=== PATIENT | female | born 1930 | race African-American/Black ===

== ENCOUNTER 2017-02-08 06:55 | Inpatient (IN) | payer MEDICARE, OTHER ==
[2017-01-26 10:14] LABS: BASOPHILS 0.2 %; BASOPHILS ABSOLUTE 0.01 10/3/uL (0.0-0.16); EOSINOPHILS 2.2 %; EOSINOPHILS ABSOLUTE 0.13 10/3/uL (0.0-0.53); HEMATOCRIT 41.6 % (36.0-48.0); HEMOGLOBIN 13.2 g/dL (12.0-16.0); IMMATURE GRANULOCYTES 0.2 %; IMMATURE GRANULOCYTES ABSOLUTE 0.01 10/3/uL (0.0-0.11); LYMPHOCYTES ABSOLUTE 1.42 10/3/uL (0.67-4.30); MEAN CORPUS HGB CONC 31.7 g/dL (32.0-36.0); MEAN CORPUSCULAR HEMOGLOB 28.7 pg (26.0-34.0); MEAN CORPUSCULAR VOLUME 90.4 fL (80-100); MEAN PLATELET VOLUME 10.3 fL (9.2-13.0); MONOCYTES 5.2 %; MONOCYTES ABSOLUTE 0.31 10/3/uL (0.21-1.20); NEUTROPHILS 68.2 %; NEUTROPHILS ABSOLUTE 4.04 10/3/uL (2.02-8.40); PLATELET COUNT 199 10/3/uL (150-400); RBC DISTRIBUTION WIDTH 14.3 % (12.0-16.0); WHITE BLOOD CELLS 5.9 10/3/uL (4.5-10.5)
[2017-01-26 10:19] LABS: MANUAL DIFF NO %
[2017-01-26 10:22] LABS: INTERNATIONAL NORMAL RATI 1.1 UNITS (-); PROTIME (NOT ORD) 14.1 SEC (12.0-14.5)
[2017-01-26 10:23] LABS: PARTIAL THROMBO TIME 32.3 SEC (22.5-37.2)
[2017-01-26 10:32] LABS: ASCORBIC ACID (UR NOT ORDER) 40 (NEG); BILIRUBIN, URINE NEGATIVE (NEG); KETONE, URINE NEGATIVE (NEG); LEUKOCYTE ESTERASE(NOT OR NEG (NEG); WBC (NOT ORDERED) (RFLEX) 2 (0-5)
[2017-01-26 10:36] LABS: ALBUMIN 3.6 G/DL (3.5-5.0); ALKALINE PHOSPHATASE 69 U/L (45-117); CALCIUM, SERUM 9.1 MG/DL (8.5-10.4); CHLORIDE, SERUM 107 MMOL/L (96-112); CO2 (CARBON DIOXIDE) 30 MMOL/L (24-34); CREATININE 0.89 MG/DL (0.55-1.02); GFR AFRICAN AMERICAN 68 ML/MIN (>=60); GFR NON AFRICAN AMERICAN 58 ML/MIN (>=60); GLOBULIN 3.7 G/DL (2.5-4.1); POTASSIUM, SERUM 3.8 MMOL/L (3.5-5.3); SGOT(AST) 17 U/L (5-40); SGPT(ALT) 16 U/L (5-65); SODIUM, SERUM 144 MMOL/L (135-148); TOTAL BILIRUBIN 0.5 MG/DL (0-1.2); TOTAL PROTEIN 7.3 G/DL (6.0-8.5)
[2017-01-26 10:37] LABS: BUN (BLOOD UREA NITROGEN) 15 MG/DL (6-23); GLUCOSE, SERUM 128 MG/DL (60-99)
--- NOTE | ~2017-02-08 | OP ---
Record Of Operation [facility] [address] [place]. [address] NAME: INES SPANN : [birth year] STATUS : ADM IN PAT#: [id number] AGE: 86 ADM/REG DATE : 02/08/17 MR#: [id number] REPORT SERV DATE: 02/08/17 DICTATED BY: AGUS GARCIA DATE: 02/08/17 REPORT STATUS : Draft TRANSCRIBED BY: MODL DATE: 02/08/17 DATE OF PROCEDURE: 02/08/2017 PREOPERATIVE DIAGNOSIS: Left hip arthritis. POSTOPERATIVE DIAGNOSIS: Left hip arthritis. PROCEDURE PERFORMED: Left total hip arthroplasty. SURGEON: Agus Garcia M.D. SWATCH CUTTER: Regis Montes. ANESTHESIA: General with local infusion. PROCEDURE IN DETAIL: The patient is clearly identified and after obtaining informed consent is brought to the operating room at [facility] where here the patient is induced under general anesthesia and subsequently placed in the left lateral decubitus position. This concluded, the thigh and flank are prepped and draped in the usual manner. A time-out procedure successfully performed and after registering the knee and marking the anatomy through an approximately 4.5 incision, the skin is divided. The fascial planes are divided. The lateral fascia then is divided. Hemostasis is obtained with electrocautery and a Charnley retractor is applied. The piriformis is identified, tagged, divided, and retracted over the sciatic nerve felt deep in the wound. At which point, the mini approach to the hip is formed with dividing the capsule in a mini approach with a cuff of tissues remaining at the femoral side to accomplish repair at the conclusion of the case. Dislocating the hip, end-stage arthritic changes are noted. The tissue surrounding the femoral neck are protected with the Hohmann retractor and the femoral neck cut is made according to preoperative templating. This concluded, the femoral head is removed. The acetabulum is exposed. The labral and fluvial tissues are removed and reaming is performed. Subsequently trialing with the appropriate trial, the permanent acetabular components placed with the Volcano Sector. At which point, the acetabular trial component is then placed. The proximal femur is then addressed. The structures posteromedial to the greater trochanter are removed and this concluded the cookie-cutter canal finder lateralizer and reaming is performed. This concluded, broaching is performed and with excellent fit-fill and stability for the implant trialing is performed finding excellent leg length, stability, no impingement, good kickback, no push-pull, and the lesser trochanter palpably at the appropriate distance from the ischium when compared to preoperative templating. The trials were felt to be appropriate. These are all then removed and the permanent implants are then carefully applied uneventfully. Copious irrigation is then performed with same stability and findings noted after insertion. At which point, the joint then is carefully closed in layers including capsule, piriformis, lateral fascia, deep tissues, and skin. Aquacel dressing is applied and the patient is then allowed to awaken, is placed supine and is returned to the recovery room in stable condition having tolerated the procedure well. ESTIMATED BLOOD LOSS: 200 mL. Record Of Operation [facility] [id number] [facility] [place]. [address] NAME: INES SPANN : [birth year] STATUS : ADM IN [facility]#: [id number] AGE: 86 ADM/REG DATE : 02/08/17 MR#: [id number] REPORT SERV DATE: 02/08/17 DICTATED BY: AGUS GARCIA DATE: 02/08/17 REPORT STATUS : Draft TRANSCRIBED BY: JOSE EDUARDO DATE: 02/08/17 FLUIDS: 800 mL. TOURNIQUET TIME: None. PATHOLOGY: Sent specimens. MICROBIOLOGY: None. COMPLICATIONS: None. SPONGE AND NEEDLE COUNTS: Reportedly correct. ANTIBIOTICS: Administered appropriately preoperatively and ordered to be discontinued within 23 hours. IMPLANTS: DePuy hip system, femur Mckean size 6, high offset, +1.5/36 metal head. Acetabulum, Volcano sector size 52 with a +4 neutral liner, and no screws. MARYBETH/JOSE EDUARDO Agus Garcia M.D. / [id number] CC: Agus Garcia M.D.
--- NOTE | ~2017-02-08 | DS ---
Discharge Summary [facility] [address] [place]. [address] NAME: INES SPANN : [birth year] STATUS : DIS IN PAT#: [id number] AGE: 86 ADM/REG DATE : 02/08/17 MR#: [id number] REPORT SERV DATE: 02/16/17 DICTATED BY: AGUS GARCIA DATE: 02/15/17 REPORT STATUS : Draft TRANSCRIBED BY: JOSE EDUARDO DATE: 02/15/17 Data Collection from hospitalization DISCHARGE DIAGNOSES: 1. Left hip arthritis. 2. Osteoarthritis. 3. Hypertension. 4. Hypercholesterolemia. 5. Chronic obstructive pulmonary disease. 6. History of chronic back pain. CONSULTATIONS: None. PROCEDURES PERFORMED: Left total hip arthroplasty, 02/08/2017. PATHOLOGY: ( ) MEDICATIONS: Combigan one drop to the right eye at bedtime, Colace 100 mg twice daily, ferrous sulfate 300 mg with breakfast and supper, Neurontin 300 mg twice daily, Theragran tablet without minerals one with breakfast, Toprol-XL 12.5 mg twice daily, MiraLAX powder one packet daily, Timoptic one drop to the right eye at bedtime, Coumadin as directed, Asmanex two puffs daily, Tylenol 650 mg every four hours as needed, Mylanta 30 mL as needed, Dulcolax 15 mg orally as needed, Dulcolax 10 mg rectally as needed, milk of magnesia 30 mL as needed, Zofran 4 mg every four hours as needed, MiraLAX powder one packet twice daily as needed, ProAir two puffs as needed, Timolol one drop to the right eye every morning, Xalatan one drop both eyes at bedtime, tramadol 50 mg every four hours as needed. CONDITION AT DISCHARGE: Upon discharge, she did appear to be doing well and had no complaints. DISPOSITION: She had been discharged with transfer to [facility] to continue a regular diet. She was also to continue with physical therapy and occupational therapy. She was to follow up with me as directed. HOSPITAL COURSE: This 86-year-old female had been seen in the clinic with left hip pain. She stated that, she had had pain in her hip for a while. She stated that, she was currently using a walker for ambulation. She stated that, she used a wheelchair around her house. She stated that, she did have a history of back pain, where she had seen Dr. Lam. She stated that, she had significant trouble with stairs and had been avoiding them. She was now admitted for surgery and further treatment. Upon admission to the hospital, she had been taken to the operating room, where she did undergo the above procedure. She tolerated this well and was transferred to the recovery room. On postop day 1, she did appear to be doing well. She had complaints of not having a bowel movement, however appeared to be in no distress. Oral fluids were encouraged. She had also been evaluated by Physical Therapy and Occupational Therapy. On postop day #2, she did remain in stable condition. Her INR was at 1.7. She did continue to do well and was then discharged on postop day 3 with the above instructions. Discharge Summary [address] [address] NAME: INES SPANN : [birth year] STATUS : DIS IN PAT#: [id number] AGE: 86 ADM/REG DATE : 02/08/17 MR#: [id number] REPORT SERV DATE: 02/16/17 DICTATED BY: AGUS GARCIA DATE: 02/15/17 REPORT STATUS : Draft TRANSCRIBED BY: JOSE EDUARDO DATE: 02/15/17 Information collected by: Altagracia CuevasI.T. I submit the above information as my discharge summary. JOSE GUADALUPE/JOSE EDUARDO Agus Garcia M.D. / [id number] CC: Santana Dela Cruz M.D.
[~2017-02-08 06:55] MED LIST: ASAB PO; ASMANEX INH; ASPERCREME; BUPAP1 TAB PO; CALTRA600D PO; COMBIGAN0.2 MG/0.5 OPH; GERITOL PO; LOP25 PO; MAGNESIUM OTC; MOBIC7.5 PO; NEUR300 PO; NEXIUM40 PO; NORCO1 TA1 PO; P10 PO; PROAIR HFA INH; PROTONIX PO; PROVENTINH INH; TIMOLOL MAL0.5 % OPH; TOPXL25 PO; TRAVATAN OPH; XALAT OPH; ZOCOR20 PO; [UNRECOGNIZED DRUG - OTHER]; [UNRECOGNIZED DRUG - OTHER] PO
[2017-02-09 05:57] LABS: HEMATOCRIT 26.8 % (36.0-48.0); HEMOGLOBIN 8.8 g/dL (12.0-16.0)
[2017-02-09 05:59] LABS: INTERNATIONAL NORMAL RATI 1.2 UNITS (-); PROTIME (NOT ORD) 15.2 SEC (12.0-14.5)
[2017-02-09 06:04] LABS: CHLORIDE, SERUM 103 MMOL/L (96-112); CO2 (CARBON DIOXIDE) 28 MMOL/L (24-34); CREATININE 0.85 MG/DL (0.55-1.02); GFR AFRICAN AMERICAN 71 ML/MIN (>=60); GFR NON AFRICAN AMERICAN 62 ML/MIN (>=60); GLUCOSE, SERUM 116 MG/DL (60-99); POTASSIUM, SERUM 4.1 MMOL/L (3.5-5.3); SODIUM, SERUM 139 MMOL/L (135-148)
[2017-02-09 06:09] LABS: BUN (BLOOD UREA NITROGEN) 10 MG/DL (6-23); CALCIUM, SERUM 7.6 MG/DL (8.5-10.4)
[2017-02-10 06:41] LABS: INTERNATIONAL NORMAL RATI 1.7 UNITS (-)
[2017-02-10 06:42] LABS: HEMATOCRIT 27.1 % (36.0-48.0); HEMOGLOBIN 8.9 g/dL (12.0-16.0)
[2017-02-10 06:43] LABS: PROTIME (NOT ORD) 19.7 SEC (12.0-14.5)
[2017-02-11 06:50] LABS: HEMATOCRIT 26.1 % (36.0-48.0); HEMOGLOBIN 8.7 g/dL (12.0-16.0)
[2017-02-11 06:56] LABS: INTERNATIONAL NORMAL RATI 1.9 UNITS (-); PROTIME (NOT ORD) 21.6 SEC (12.0-14.5)
== END 2017-02-11 11:21 | DRG 470 ==
LOC: SDC/OF 06:55 → PACU 11:37 → 3SO 15:26
PROVIDERS: Orthopaedic Surgery
PROC: 0SRB02Z Replacement of Left Hip Joint with Metal on Polyethylene Synthetic Substitute, Open Approach (ICD-10-PCS; principal; 2017-02-08 08:45)
DX: M16.12 Unilateral primary osteoarthritis, left hip (principal); J44.9 Chronic obstructive pulmonary disease, unspecified; D62 Acute posthemorrhagic anemia; I10 Essential (primary) hypertension; E78.00 Pure hypercholesterolemia, unspecified
CPT/HCPCS: 36415; 71020; 72170; 80048; 80053; 81001; 82962; 85014; 85018; 85025; 85610; 85730; 86850; 86900; 86901; 87641; 88304; 88311; 93005; 94640; 97110-GP; 97116-GP; 97162-GP; 97166-GO; 97535-GO; A9270-GY; C1776; J0690; J1885; J2274; J2370; J2405; J2710; J2795; J3010